=== PATIENT | male | born 1985 | race Caucasian/White ===

== ENCOUNTER 2016-09-02 16:16 | Emergency (ER) | payer BC ==
[2016-09-02 16:50] VITALS: BP 139/95
--- NOTE | 2016-09-02 17:22 | UC ---
Throat Pain/Nasal Dharmesh HPI - HPI Summary HPI Summary: Pt c/o nasal congestion sore throat and sinus pressure X 7 days. C/o night sweats and "chills" - History of Current Complaint Chief Complaint: UCGeneralIllness Stated Complaint: SINUS/CONGESTION Time Seen by Provider: 09/02/16 17:08 Hx Obtained From: Patient Onset/Duration: Gradual Onset, Lasting Days Severity: Mild Associated Signs & Symptoms: Positive: Dysphagia, Sinus Discomfort, Other - PND Related History: Other (Noted In Comments) - PMH astham - Allergies/Home Medications Allergies/Adverse Reactions: Allergies Allergy/AdvReac Type Severity Reaction Status Date / Time Amoxicillin AdvReac GI Upset Verified 09/02/16 16:50 Home Medications: Home Medications guaiFENesin ER TAB [Mucinex*] 600 mg PO BID 09/02/16 [History Confirmed 09/02/16 ] PMH/Surg Hx/FS Hx/Imm Hx Previously Healthy: Yes - Surgical History Surgical History: None - Family History Known Family History: Positive: Cardiac Disease - Social History Lives: With Family Alcohol Use: None Substance Use Type: None Smoking Status (MU): Never Smoked Tobacco - Immunization History Most Recent Tetanus Shot: 2014 Review of Systems Constitutional: Chills, Fatigue Skin: Negative Eyes: Negative ENT: Sore Throat, Nasal Discharge, Other - sinus discomfort Respiratory: Negative Cardiovascular: Negative Gastrointestinal: Negative Genitourinary: Negative Motor: Negative Neurovascular: Negative Musculoskeletal: Myalgia Neurological: Negative Psychological: Negative All Other Systems Reviewed And Are Negative: Yes Physical Exam Triage Information Reviewed: Yes Appearance: Ill-Appearing Vital Signs: Initial Vital Signs Temp 98.3 F 09/02/16 16:46 Pulse 98 09/02/16 16:46 Resp 16 09/02/16 16:46 BP 139/95 09/02/16 16:46 Pulse Ox 100 09/02/16 16:46 Vital Signs Reviewed: Yes ENT: Positive: Nasal congestion, Other: - maxillary sinus tenderness Neck exam: Normal Respiratory Exam: Normal Cardiovascular Exam: Normal Musculoskeletal Exam: Normal Neurological Exam: Normal Psychological Exam: Normal Skin Exam: Normal Throat Pain/Nasal Course/Dx - Differential Dx/Diagnosis Differential Diagnosis/HQI/PQRI: Influenza, Sinusitis, URI Provider Diagnoses: sinusitis Discharge - Discharge Plan Condition: Stable Disposition: HOME Prescriptions: Azithromycin TAB* [Zithromax TAB (Z-JEANA) 250 mg #6 tabs] 2 tab PO .TODAY, THEN 1 DAILY #1 jeana Patient Education Materials: Sinusitis (ED) Referrals: [facility] [Outside] No Primary Care Phys,NOPCP [Primary Care Provider] -
== END 2016-09-02 17:30 | disposition home or self-care (01) ==
LOC: UCCORT 16:16
DX: J32.9 Chronic sinusitis, unspecified (principal); Z88.0 Allergy status to penicillin
CPT/HCPCS: 99212; G0463